=== PATIENT | male | born 1960 | race Caucasian/White ===

== ENCOUNTER 2018-01-10 23:47 | Emergency (ER) | payer OTHER ==
[2018-01-11] MEDS ORDERED: Hydrocortisone/Neomycin/Polymyxin B Ophth Susp 7.5 ML Bottle ONE (00:28)
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
== END 2018-01-11 00:57 | disposition home or self-care (01) ==
LOC: FB.ED 23:47
DX: S05.01XA Injury of conjunctiva and corneal abrasion without foreign body, right eye, initial encounter (principal); X08.8XXA Exposure to other specified smoke, fire and flames, initial encounter
CPT/HCPCS: 99283; A9270-GY

== ENCOUNTER 2018-08-17 05:59 | Emergency (ER) | payer MEDICARE, OTHER ==
[2018-08-17] MEDS ORDERED: Sodium Chloride 0.9% 10 ML Syringe FLUSH PRN (06:00)
[2018-08-17] MEDS ORDERED: Albuterol/Ipratropium 3.0-0.5 MG/3 ML Neb Soln NEB ONE (06:08)
[2018-08-17] MEDS ORDERED: methylPREDNISolone Sodium Succinate 125 MG/2 ML SDV IVPUSH ONE (06:11)
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
[2018-08-17] MEDS ORDERED: Aspirin 81 MG Tab.Chew PO ONE (07:08)
[2018-08-17] MEDS ORDERED: Heparin Sodium/0.45% NaCl 25,000 UNITS/500 ML BAG IV SCH (07:15)
[2018-08-17] MEDS ORDERED: Iopamidol 755 Mg/ML 100 ML Bottle IV ONE (07:56)
[2018-08-17] MEDS ORDERED: Levofloxacin 500 MG Tab PO ONE (09:08)
== END 2018-08-17 10:15 ==
LOC: FB.ED 05:59
DX: I21.4 Non-ST elevation (NSTEMI) myocardial infarction (principal); J18.1 Lobar pneumonia, unspecified organism; F41.9 Anxiety disorder, unspecified; F32.9 Major depressive disorder, single episode, unspecified; J44.9 Chronic obstructive pulmonary disease, unspecified; Z79.82 Long term (current) use of aspirin; Z79.899 Other long term (current) drug therapy; Z91.030 Bee allergy status
CPT/HCPCS: 36415; 71045; 71275; 80048; 83605; 84484; 85025; 85379; 85610; 85730; 87040; 93005; 94640; 96365; 96366; 96375; 99285; A9270-GY; J1644; J2930; J7620-GY; Q9967

== ENCOUNTER 2020-05-16 08:49 | Inpatient (IN) | payer OTHER, MEDICARE ==
[2020-05-16] MEDS ORDERED: Dexamethasone 4 MG/ML SDV IVPUSH ONE (09:06)
[2020-05-16] MEDS ORDERED: Sodium Chloride 0.9% 500 ML IV ONE (09:06)
[2020-05-16] MEDS ORDERED: Albuterol/Ipratropium 3.0-0.5 MG/3 ML Neb Soln NEB ONE (09:07)
--- NOTE | 2020-05-16 09:15 | EDM.PDOC ---
ED HPI GENERAL MEDICAL PROBLEM - General Chief Complaint: Respiratory Problem Stated Complaint: CHEST PAIN Time Seen by Provider: 05/16/20 09:09 Source of Information: Reports: Patient History Limitations: Reports: No Limitations - History of Present Illness INITIAL COMMENTS - FREE TEXT/NARRATIVE: Presents with cough, SOB, chills, pleuritic right sided chest pain, and RUQ abdominal pain x 2 days. Denies N/V/D. Patient has a prior history of CAD (CABG in 2017) and COPD. He continues to smoke cigarettes. Patient usually uses 02 only at night but has been using it during the day as well x 2 days. Duration: Day(s): (2) Location: Reports: Chest, Abdomen Quality: Reports: Ache Severity: Moderate R lateral rib Pain Score (Numeric/FACES): 9 - Related Data Allergies Allergy/AdvReac Type Severity Reaction Status Date / Time venom-honey bee Allergy Anaphylactic Verified 05/16/20 09:37 [bee venom (honey bee)] Shock Home Meds: Home Meds ALPRAZolam [Xanax] 0.5 mg PO DAILY 01/11/18 [History] Albuterol [Proventil HFA] 2 puff INH Q4H PRN 01/11/18 [History] Aspirin 81 mg PO DAILY 01/11/18 [History] Budesonide/Formoterol [Symbicort 160-4.5 MCG] 2 puff BID 01/11/18 [History] Simvastatin [Zocor] 40 mg PO BEDTIME 01/11/18 [History] busPIRone [Buspar] 20 mg PO BID 01/11/18 [History] traZODone 150 mg PO BEDTIME 01/11/18 [History] metFORMIN [Glucophage] 500 mg PO BIDMEALS 05/16/20 [History] Past Medical History Cardiovascular History: Reports: CAD, High Cholesterol, PVD Other Cardiovascular History: open heart surgery on 12/23/2016. has triple bypass Respiratory History: Reports: COPD Musculoskeletal History: Reports: Fracture, Other (See Below) Other Musculoskeletal History: hx L fx clavicle Psychiatric History: Reports: Addiction, Anxiety, Depression, Panic Attack Other Psychiatric History: hx cocaine abuse Endocrine/Metabolic History: Reports: Obesity/BMI 30+ - Past Surgical History HEENT Surgical History: Reports: Adenoidectomy, Tonsillectomy Cardiovascular Surgical History: Reports: Coronary Artery Bypass Other Cardiovascular Surgeries/Procedures: 3 vessel bypass Respiratory Surgical History: Reports: None Musculoskeletal Surgical History: Reports: None Social & Family History - Family History Family Medical History: Noncontributory - Tobacco Use Tobacco Use Status *Q: Current Every Day Tobacco User Tobacco Use Within Last Twelve Months: Cigarettes - Caffeine Use Caffeine Use: Reports: Coffee ED ROS GENERAL - Review of Systems Review Of Systems: Comprehensive ROS is negative, except as noted in HPI. ED EXAM, GENERAL - Physical Exam Exam: See Below Exam Limited By: No Limitations General Appearance: Alert, WD/WN, No Apparent Distress Nose: Normal Inspection Throat/Mouth: No Airway Compromise Head: Atraumatic, Normocephalic Neck: Full Range of Motion Respiratory/Chest: No Respiratory Distress, Decreased Breath Sounds, Crackles (right) Cardiovascular: Regular Rate, Rhythm, No Murmur GI/Abdominal: Normal Bowel Sounds, Soft, Tender (mild RUQ). No: Guarding Back Exam: Full Range of Motion Extremities: Normal Range of Motion, Non-Tender, No Pedal Edema Neurological: Alert, Normal Cognition, No Motor/Sensory Deficits Psychiatric: Normal Affect, Normal Mood Skin Exam: Warm, Dry, Intact #1 Interpretation EKG Date: 05/16/20 Time: 08:52 Rhythm: Other (sinus tachycardia) Rate (Beats/Min): 120 Trade: Normal P-Wave: Present QRS: RBBB ST-T: Normal QT: Normal Comparison: No Change (08/17/18) Course - Vital Signs Last Recorded V/S: Last Vital Signs Temp 36.8 C 05/16/20 08:49 Pulse 122 H 05/16/20 08:49 Resp 28 H 05/16/20 08:49 BP 137/82 05/16/20 08:49 Pulse Ox 91 L 05/16/20 08:49 - Orders/Labs/Meds Orders: Active Orders 24 hr Category Date Time Status Admission Status [Patient Status] [ADT] Routine ADT 05/16/20 13:03 Active EKG Documentation Completion [RC] ASDIRECTED Care 05/16/20 08:57 Active RT Aerosol Therapy [RC] ASDIRECTED Care 05/16/20 09:07 Active Ang Chest [CT] Stat Exams 05/16/20 10:11 Taken CXR [Chest 1V Frontal] [CR] Stat Exams 05/16/20 08:57 Taken CULTURE BLOOD [BC] Urgent Lab 05/16/20 09:20 Received CULTURE BLOOD [BC] Urgent Lab 05/16/20 09:25 Received CULTURE SPUTUM + SMEAR [RM] Stat Lab 05/16/20 09:08 Ordered Sodium Chloride 0.9% [Saline Flush] Med 05/16/20 09:06 Active 10 ml FLUSH ASDIRECTED PRN Blood Culture x2 Reflex Set [OM.PC] Urgent Oth 05/16/20 09:04 Ordered Isolation [COMM] Routine Oth 05/16/20 09:05 Ordered Saline Lock Insert [OM.PC] Routine Oth 05/16/20 09:06 Ordered EKG 12 Lead [EK] Stat Ther 05/16/20 08:57 Ordered Medication Orders Sodium Chloride (Saline Flush) 10 ml FLUSH ASDIRECTED PRN PRN Reason: Keep Vein Open Last Admin: 05/16/20 10:20 Dose: 10 ml Documented by: STEFANIE Labs: Laboratory Tests 05/16/20 05/16/20 05/16/20 Range/Units 08:55 08:55 08:55 WBC 11.4 (4.5-12.0) X10-3/uL RBC 4.75 (4.30-5.75) x10(6)uL Hgb 14.9 (13.5-17.8) g/dL Hct 44.6 (30.0-51.3) % MCV 93.9 (80-96) fL MCH 31.4 (27.7-33.6) pg MCHC 33.4 (32.2-35.4) g/dL RDW 15.1 (11.5-15.5) % Plt Count 196 (125-369) X10(3)uL MPV 7.7 (7.4-10.4) fL Add Manual Diff Yes Neutrophils % (Manual) 90 H (46-82) % Band Neutrophils % 3 (0-6) % Lymphocytes % (Manual) 6 L (13-37) % Monocytes % (Manual) 1 L (4-12) % PT 9.6 (9.0-11.1) sec INR 0.88 L (1.00-1.24) APTT 29.6 (24.4-33.2) SECONDS D-Dimer, Quantitative 4.59 H (0.0-0.59) mg/LFEU POC VBG pH (7.32-7.43) pH Units POC VBG pCO2 (41-51) mmHg POC VBG HCO3 (21-29) mmol/L VBG Base Excess (-2-3) mmol/L O2 Delivery Device Sodium 133 L (135-145) mmol/L Potassium 3.9 (3.5-5.3) mmol/L Chloride 96 L (100-110) mmol/L Carbon Dioxide 27 (21-32) mmol/L BUN 14 (7-18) mg/dL Creatinine 1.1 (0.70-1.30) mg/dL Est Cr Clr Drug Dosing TNP Estimated GFR (MDRD) > 60 (>60) BUN/Creatinine Ratio 12.7 (9-20) Glucose 209 H (80-116) mg/dL Lactic Acid (0.4-2.0) mmol/L Calcium 9.4 (8.6-10.2) mg/dL Total Bilirubin 1.2 (0.1-1.3) mg/dL AST 50 H (5-25) IU/L ALT 39 H (12-36) U/L Alkaline Phosphatase 130 H (56-112) IU/L Troponin I (4.0-60.3) pg/mL Total Protein 6.7 (6.0-8.0) g/dL Albumin 1.9 L (3.2-4.6) g/dL Globulin 4.8 g/dL Albumin/Globulin Ratio 0.4 Lipase (73-393) U/L SARS-CoV-2 RNA ([facility]) (NEGATIVE) 05/16/20 05/16/20 05/16/20 Range/Units 08:55 08:55 09:05 WBC (4.5-12.0) X10-3/uL RBC (4.30-5.75) x10(6)uL Hgb (13.5-17.8) g/dL Hct (30.0-51.3) % MCV (80-96) fL MCH (27.7-33.6) pg MCHC (32.2-35.4) g/dL RDW (11.5-15.5) % Plt Count (125-369) X10(3)uL MPV (7.4-10.4) fL Add Manual Diff Neutrophils % (Manual) (46-82) % Band Neutrophils % (0-6) % Lymphocytes % (Manual) (13-37) % Monocytes % (Manual) (4-12) % PT (9.0-11.1) sec INR (1.00-1.24) APTT (24.4-33.2) SECONDS D-Dimer, Quantitative (0.0-0.59) mg/LFEU POC VBG pH (7.32-7.43) pH Units POC VBG pCO2 (41-51) mmHg POC VBG HCO3 (21-29) mmol/L VBG Base Excess (-2-3) mmol/L O2 Delivery Device Sodium (135-145) mmol/L Potassium (3.5-5.3) mmol/L Chloride (100-110) mmol/L Carbon Dioxide (21-32) mmol/L BUN (7-18) mg/dL Creatinine (0.70-1.30) mg/dL Est Cr Clr Drug Dosing Estimated GFR (MDRD) (>60) BUN/Creatinine Ratio (9-20) Glucose (80-116) mg/dL Lactic Acid (0.4-2.0) mmol/L Calcium (8.6-10.2) mg/dL Total Bilirubin (0.1-1.3) mg/dL AST (5-25) IU/L ALT (12-36) U/L Alkaline Phosphatase (56-112) IU/L Troponin I 279.0 H* (4.0-60.3) pg/mL Total Protein (6.0-8.0) g/dL Albumin (3.2-4.6) g/dL Globulin g/dL Albumin/Globulin Ratio Lipase 90 (73-393) U/L SARS-CoV-2 RNA ([facility]) Negative (NEGATIVE) 05/16/20 05/16/20 05/16/20 Range/Units 09:25 09:25 12:12 WBC (4.5-12.0) X10-3/uL RBC (4.30-5.75) x10(6)uL Hgb (13.5-17.8) g/dL Hct (30.0-51.3) % MCV (80-96) fL MCH (27.7-33.6) pg MCHC (32.2-35.4) g/dL RDW (11.5-15.5) % Plt Count (125-369) X10(3)uL MPV (7.4-10.4) fL Add Manual Diff Neutrophils % (Manual) (46-82) % Band Neutrophils % (0-6) % Lymphocytes % (Manual) (13-37) % Monocytes % (Manual) (4-12) % PT (9.0-11.1) sec INR (1.00-1.24) APTT (24.4-33.2) SECONDS D-Dimer, Quantitative (0.0-0.59) mg/LFEU POC VBG pH 7.47 H (7.32-7.43) pH Units POC VBG pCO2 33 L (41-51) mmHg POC VBG HCO3 24 (21-29) mmol/L VBG Base Excess 0 (-2-3) mmol/L O2 Delivery Device Room air Sodium (135-145) mmol/L Potassium (3.5-5.3) mmol/L Chloride (100-110) mmol/L Carbon Dioxide (21-32) mmol/L BUN (7-18) mg/dL Creatinine (0.70-1.30) mg/dL Est Cr Clr Drug Dosing Estimated GFR (MDRD) (>60) BUN/Creatinine Ratio (9-20) Glucose (80-116) mg/dL Lactic Acid 1.7 (0.4-2.0) mmol/L Calcium (8.6-10.2) mg/dL Total Bilirubin (0.1-1.3) mg/dL AST (5-25) IU/L ALT (12-36) U/L Alkaline Phosphatase (56-112) IU/L Troponin I 266.2 H* (4.0-60.3) pg/mL Total Protein (6.0-8.0) g/dL Albumin (3.2-4.6) g/dL Globulin g/dL Albumin/Globulin Ratio Lipase (73-393) U/L SARS-CoV-2 RNA ([facility]INA) (NEGATIVE) Meds: Medications Generic Name Dose Route Start Last Admin Trade Name Freq PRN Reason Stop Dose Admin Sodium Chloride 10 ml 05/16/20 09:06 05/16/20 10:20 Saline Flush FLUSH 10 ml ASDIRECTED PRN Administration Keep Vein Open Discontinued Medications Generic Name Dose Route Start Last Admin Trade Name Noe PRN Reason Stop Dose Admin Albuterol/Ipratropium 3 ml 05/16/20 09:07 05/16/20 09:42 Duoneb 3.0-0.5 Mg/3 Ml NEB 05/16/20 09:08 3 ml ONETIME ONE Administration Aspirin 243 mg 05/16/20 09:33 05/16/20 09:40 Aspirin PO 05/16/20 09:34 243 mg ONETIME ONE Administration Azithromycin 500 mg 05/16/20 11:53 05/16/20 12:06 Zithromax PO 05/16/20 11:54 500 mg ONETIME ONE Administration Ceftriaxone Sodium 2 gm 05/16/20 11:52 05/16/20 12:06 Rocephin IVPUSH 05/16/20 11:53 2 gm ONETIME ONE Administration Dexamethasone 10 mg 05/16/20 09:06 05/16/20 10:24 Dexamethasone IVPUSH 05/16/20 09:07 10 mg ONETIME ONE Administration Sodium Chloride 500 mls @ 500 mls/hr 05/16/20 09:06 05/16/20 10:20 Normal Saline IV 05/16/20 10:05 500 mls/hr .BOLUS ONE Administration Iopamidol 100 ml 05/16/20 11:01 05/16/20 11:25 Isovue-370 (76%) IV 05/16/20 11:02 90 ml . DIRECTED ONE Administration - Radiology Interpretation Free Text/Narrative:: CXR: FINDINGS/IMPRESSION: The cardiac silhouette is within normal limits. There is airspace opacification as well as interstitial thickening in the right lung base and right perihilar region concerning for potential infiltrate. There is suggestion of superimposed chronic fibrointerstitial changes. There is mild right pleural thickening versus small effusion. No pneumothorax. Left lung is clear. Finalized by: Parag Patricia MD on 05/16/2020 10:51 AM CDT. CTA Chest: No pulmonary emboli. RLL opacification adjacent patchy infiltrates. Patchy infiltrates also located in LLL and RUL. (per Dr. Trinidad) - Re-Assessments/Exams Free Text/Narrative Re-Assessment/Exam: 05/16/20 12:40 Patient feels much better. Sa02 91% on 4L 02 NC. Troponin trending down. No EKG changes. 05/16/20 13:06 Dr. Walter agrees to admit to [facility] Departure - Departure Time of Disposition: 13:07 Disposition: Admitted As Inpatient 64 Condition: Fair Clinical Impression: COPD exacerbation, Hypoxemia Pneumonia Qualifiers: Pneumonia type: due to unspecified organism Laterality: bilateral Lung location: unspecified part of lung Qualified Code(s): J18.9 - Pneumonia, unspecified organism Referrals: PCP,Not In Area [Primary Care Provider] - Forms: ED Department Discharge Sepsis Event Note (ED) - Focused Exam Vital Signs: Vital Signs Temp Pulse Resp BP Pulse Ox 05/16/20 08:49 36.8 C 122 H 28 H 137/82 91 L - My Orders Last 24 Hours: My Active Orders 05/16/20 08:57 EKG Documentation Completion [RC] ASDIRECTED CXR [Chest 1V Frontal] [CR] Stat EKG 12 Lead [EK] Stat 05/16/20 09:04 Blood Culture x2 Reflex Set [OM.PC] Urgent 05/16/20 09:05 Isolation [COMM] Routine 05/16/20 09:06 Sodium Chloride 0.9% [Saline Flush] 10 ml FLUSH ASDIRECTED PRN Saline Lock Insert [OM.PC] Routine 05/16/20 09:07 RT Aerosol Therapy [RC] ASDIRECTED 05/16/20 09:08 CULTURE SPUTUM + SMEAR [RM] Stat 05/16/20 09:20 CULTURE BLOOD [BC] Urgent 05/16/20 09:25 CULTURE BLOOD [BC] Urgent 05/16/20 10:11 Ang Chest [CT] Stat 05/16/20 13:03 Admission Status [Patient Status] [ADT] Routine - Assessment/Plan Last 24 Hours: My Active Orders 05/16/20 08:57 EKG Documentation Completion [RC] ASDIRECTED CXR [Chest 1V Frontal] [CR] Stat EKG 12 Lead [EK] Stat 05/16/20 09:04 Blood Culture x2 Reflex Set [OM.PC] Urgent 05/16/20 09:05 Isolation [COMM] Routine 05/16/20 09:06 Sodium Chloride 0.9% [Saline Flush] 10 ml FLUSH ASDIRECTED PRN Saline Lock Insert [OM.PC] Routine 05/16/20 09:07 RT Aerosol Therapy [RC] ASDIRECTED 05/16/20 09:08 CULTURE SPUTUM + SMEAR [RM] Stat 05/16/20 09:20 CULTURE BLOOD [BC] Urgent 05/16/20 09:25 CULTURE BLOOD [BC] Urgent 05/16/20 10:11 Ang Chest [CT] Stat 05/16/20 13:03 Admission Status [Patient Status] [ADT] Routine
[2020-05-16] MEDS ORDERED: Aspirin 81 MG Tab.Chew PO ONE (09:33)
[2020-05-16 09:46] LABS: BASE EXCESS VENOUS,POC 0 mmol/L (-2-3); HCO3 VENOUS,POC 24 mmol/L (21-29); PCO2 VENOUS,POC 33 mmHg (41-51); PH VENOUS,POC 7.47 pH Units (7.32-7.43)
[2020-05-16] MEDS: Sodium Chloride 0.9% 10 ML Syringe FLUSH PRN (10:20)
[2020-05-16] MEDS ORDERED: Iopamidol 755 Mg/ML 100 ML Bottle IV ONE (11:01)
[2020-05-16] MEDS ORDERED: cefTRIAXone 2 GM Vial IVPUSH ONE (11:52)
[2020-05-16] MEDS ORDERED: Azithromycin 500 MG Tab PO ONE (11:53)
[2020-05-16] MEDS ORDERED: Albuterol 8 GM Inhaler INH PRN (14:51)
[2020-05-16] MEDS ORDERED: Enoxaparin 40 MG/0.4 ML Syringe SUBCUT SCH (16:00)
[2020-05-16] MEDS ORDERED: ALPRAZolam 0.5 MG Tab PO PRN (16:00)
--- NOTE | 2020-05-16 16:24 | HP ---
ADMISSION DATE: 05/16/2020 History is from the patient and his clinic chart. CHIEF COMPLAINT: Pneumonia. HISTORY OF PRESENT ILLNESS: Mr. Morales is a 59-year-old with a history of coronary artery disease, IA, and angioplasty with stents. He has also had severe peripheral vascular disease and has been scheduled in the past for a right femoral-popliteal bypass; however, it was canceled 1 year ago because of pneumonia. He was scheduled to see his vascular surgeon on May 22 too, an appointment that may be canceled because of this illness. According to the patient, approximately 2 days ago, he began to have pain in his right chest. He says it felt like a horse kicked him there. He also developed fever, chills, and a cough. This worsened over the subsequent day, and he came into the emergency room this afternoon where he was evaluated by Dr. Lucas and is now admitted for pneumonia. The patient denies injuries to his chest. He does report shortness of breath, and he is on chronic oxygen because of severe COPD. CT angiogram was done in the emergency room that showed no sign of a pulmonary embolus. Of note that he has been treated twice in the last 2 years with antibiotics for pneumonia. PAST MEDICAL HISTORY: Coronary artery disease. He was admitted to [facility] in [place] in June 2018 when he had an admission for chest pain. He left AMA, however, before additional workup could be done. Past history recorded an apparent cardiac bypass graft in 2018 at the [facility] in [place]. Past history also includes fissurectomy, depression, and severe COPD. He denies other surgical procedures, inpatient hospitalizations, or medical problems. MEDICATIONS: 1. Trazodone 150 mg at bedtime. 2. Simvastatin 40 mg daily. 3. Metformin 500 mg b.i.d. 4. BuSpar 20 mg b.i.d. 5. Symbicort 160 two puffs b.i.d. 6. Aspirin 81 mg daily. 7. Proventil HFA 2 puffs every 4 hours p.r.n. 8. Alprazolam 0.5 mg p.o. daily. ALLERGIES: None to medications. HABITS: Ten cigarettes per day smoker. Occasional alcohol. One pot of coffee per day. FAMILY AND SOCIAL HISTORY: The patient is engaged and lives with his significant other in [place]. 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 He is now disabled from work. He has 1 son who lives in [place]. Family Medical History: The patient's father at age 62 of an IA. His father had his 1st IA at age 56. Paternal grandfather of an IA at age 39. Mother is aged 88 and has peripheral vascular disease. He has 4 siblings who are described in good health. REVIEW OF SYSTEMS: GENERAL: No seizure, syncope, or recent significant weight change. SKIN: Negative for rash. HEENT: No recent change in hearing or vision. No sore throat or URI. CHEST: He does have a cough and some right- sided chest pain as mentioned that is inspiratory in nature. CARDIAC: No palpitations. ABDOMEN: No abdominal pain, nausea, or diarrhea. MUSCULOSKELETAL: No swelling or skin rash. PHYSICAL EXAMINATION: GENERAL: He is alert and comfortable. He is a good historian. VITAL SIGNS: Blood pressure 137/82, pulse 122 and regular, respirations 28, and O2 saturation 91% on 4 L nasal cannula. Weight stated at 227 pounds. SKIN: Anicteric, warm, and dry. No rash or sign of trauma. HEENT: Clear TMs. Throat is clear. LUNGS: Clear in the upper lung crowell. He has fine rales at the left base and coarse rales with diminished breath sounds at the right base. HEART: Regular without murmur or gallop. ABDOMEN: Obese, soft, and nontender. No masses or organomegaly. EXTREMITIES: No edema. He has palpable dorsalis pedis pulse in the left foot. I cannot feel any pulses in the right foot. NEUROLOGIC: Mental status intact. Motor exam is symmetric. LABORATORY DATA: Chest x-ray shows right lower lobe pneumonia. White count 11,400, hemoglobin 14.9, platelets 196, segs 90, bands 3, lymphs 6, and 1 mono. Sodium 133, potassium 3.9, BUN 14, and creatinine 1.1. Troponin 279 and on recheck 266. SARS test negative. ASSESSMENT: A 59-year-old man with: 1. Right lower lobe pneumonia. 2. Severe oxygen-dependent chronic obstructive pulmonary disease. 3. History of coronary artery disease, status post coronary artery bypass graft. 4. Cigarette smoker. 5. Severe peripheral vascular disease with plans for upcoming right femoral- popliteal bypass and later left femoral-popliteal bypass. 6. Depression. PLAN: He is started on IV ceftriaxone and azithromycin. We will use incentive spirometry and anticipate a 48 to 72-hour acute hospital stay followed by return to home. /[id number] LIZETTE/CHASE
[2020-05-16] MEDS ORDERED: metFORMIN 500 MG Tab PO SCH (18:00)
[2020-05-16] MEDS: busPIRone 10 MG Tab PO SCH (20:00)
[2020-05-16] MEDS: Formoterol/Mometasone 200-5 MCG 8.8 GM Inhaler IH SCH (20:01)
[2020-05-16] MEDS ORDERED: Nicotine 14 MG/24 Hr Patch TRDERM SCH (20:45)
[2020-05-16] MEDS ORDERED: traZODone 50 MG Tab PO SCH (21:00)
[2020-05-16] MEDS ORDERED: Simvastatin 40 MG Tab PO SCH (21:00)
[2020-05-17] MEDS ORDERED: metFORMIN 500 MG Tab PO SCH (08:00)
--- NOTE | 2020-05-17 08:18 | CT ---
INDICATION: Short of breath, elevated D-dimer (4.59), no chest pain - shortness of breath x2 days. COMPUTERIZED TOMOGRAPHY ANGIOGRAPHY OF THE CHEST WITH CONTRAST: Spiral 1.25 mm axial sections were obtained through the chest with axial, sagittal and coronal reconstructions 06/16/20 with 90 mL Isovue-370 at 3 mL per second and compared with 08/17/18 examination. Total exam DLP was 923.90 mGy-cm. Mediastinal lymphadenopathy is moderate and may be reactive to infection, although it is nonspecific in that regard and could be neoplastic in etiology. Subcarinal nodes appear to be more prominent than on the previous study. The remainder of the nodes appear fairly stable. Right hilar lymphadenopathy is also again noted overall appearing similar to the previous study. No mediastinal mass was identified. Calcifications are noted in the arch of the aorta and apparently coronary arteries. The heart did not appear enlarged. No pericardial effusion was seen. The upper abdomen included on the study suggests relatively low density liver suggesting fatty liver. A calculus is noted in the gallbladder compatible with cholelithiasis. Mild renal fascial thickening is also noted on the left. The left lung appears overall similar to the previous study with some hydrostatic density posteriorly, it is difficult to exclude some minimal linear atelectasis in the lingula area, especially on the left. On the right, however, there is extensive consolidating pneumonia involving the right lower lobe which is compatible with pneumonia. There appears to be a pleural effusion of moderate size on the right compatible with pleuritis. The infiltrate extends throughout the right lower lobe with less prominent but significant infiltrate noted in the middle lobe on the right. Relatively minimal infiltrate is suggested in the basilar right upper lobe. No evidence of pulmonary embolus was identified. IMPRESSION: 1. Almost complete opacification of the right lower lobe with additional minimal infiltrate in the right upper lobe and moderate infiltrate in the middle lobe. This appearance would be compatible with a severe pneumonia with pleuritis as there appears to be a moderate amount of pleural fluid, possibly loculated. 2. Some very minimal peripheral infiltrates are noted in the left lower lobe at the lung base and apical superior segment posteriorly for the most part. A process such as COVID-19 would be a consideration - correlate clinically. 3. No evidence of PE could be identified. 4. ASHD/ASD. Report was called to Dr. Lucas at 1147 hours. MTDD
[2020-05-17] MEDS ORDERED: Azithromycin 250 MG Tab PO SCH (09:00)
[2020-05-17] MEDS ORDERED: Aspirin 81 MG Tab.Chew PO SCH (09:00)
[2020-05-17] MEDS ORDERED: cefTRIAXone 1 GM in Sodium Chloride 0.9% 50 ML IV SCH (10:00)
[2020-05-17] MEDS: busPIRone 10 MG Tab PO SCH (10:18)
[2020-05-17] MEDS: Formoterol/Mometasone 200-5 MCG 8.8 GM Inhaler IH SCH (10:18)
[2020-05-17] MEDS ORDERED: cefTRIAXone 1 GM Vial IVPUSH SCH ×2 (10:25→12:00)
[2020-05-17] MEDS: Sodium Chloride 0.9% 10 ML Syringe FLUSH PRN (10:29)
--- NOTE | 2020-05-17 16:17 | DISCH ---
DISCHARGE DATE: 05/17/2020 HISTORY: Antonio is a 59-year-old who has received almost all of his care at the [facility] with a history of severe COPD, oxygen dependent; coronary artery disease, status post CABG; and type 2 diabetes. He was admitted through the emergency room because of coughing and shortness of breath. He is on chronic home oxygen. He was found to have an infiltrate in the right lung and was admitted for IV treatment of pneumonia. The patient states that he felt well overnight. He slept well. The pain he was having in the right side of his chest is now gone. He is not having any breathing difficulty and he is anxious to go home, stating that he is going to go home today. PHYSICAL EXAMINATION: VITAL SIGNS: This morning showed his weight to be 219 pounds. Temperature 97.6, O2 saturation 90% on 4 L nasal cannula. LUNGS: Had extensive dense rales and rhonchi throughout the upper, mid, and lower right lung field. Left was clear. HEART: Regular. ABDOMEN: Soft and nontender. EXTREMITIES: Showed no edema. LABORATORY DATA: This morning, white count 12,100, glucose 292. Troponin 228, this has remained elevated modestly since yesterday without a clear peak. EKG reviewed showed a right bundle branch block and no acute ischemic changes. DISCHARGE INSTRUCTIONS: I have recommended that he stay for continued inpatient treatment. He was adamant about going home. I have consented to release him to continue IV Rocephin therapy tomorrow or the next day to be received at the clinic. We will leave the saline lock in place. He will continue his azithromycin as well. He is to have a followup for a lung exam in 1 week and recheck sooner p.r.n. /[id number] LIZETTE/CHASE
[2020-05-17] MEDS ORDERED: Nicotine 14 MG/24 Hr Patch TRDERM SCH (21:00)
== END 2020-05-17 10:45 | disposition home or self-care (01) | DRG 194 ==
LOC: FB.ED 08:49 → FB.MS 13:03
PROVIDERS: ADMIT Emergency Medicine; ATTEND Family Medicine
DX: J18.9 Pneumonia, unspecified organism (principal); J44.0 Chronic obstructive pulmonary disease with (acute) lower respiratory infection; J44.1 Chronic obstructive pulmonary disease with (acute) exacerbation; R09.02 Hypoxemia; I25.10 Atherosclerotic heart disease of native coronary artery without angina pectoris; F32.9 Major depressive disorder, single episode, unspecified; F17.210 Nicotine dependence, cigarettes, uncomplicated; I73.9 Peripheral vascular disease, unspecified; Z20.828 Contact with and (suspected) exposure to other viral communicable diseases; E78.00 Pure hypercholesterolemia, unspecified; F41.9 Anxiety disorder, unspecified; F41.0 Panic disorder [episodic paroxysmal anxiety]; F14.11 Cocaine abuse, in remission; E66.9 Obesity, unspecified; I10 Essential (primary) hypertension; E11.51 Type 2 diabetes mellitus with diabetic peripheral angiopathy without gangrene; I25.2 Old myocardial infarction; Z95.5 Presence of coronary angioplasty implant and graft; Z99.81 Dependence on supplemental oxygen; Z91.030 Bee allergy status; Z95.1 Presence of aortocoronary bypass graft; Z79.82 Long term (current) use of aspirin; Z79.899 Other long term (current) drug therapy; Z79.84 Long term (current) use of oral hypoglycemic drugs; Z68.34 Body mass index [BMI] 34.0-34.9, adult
CPT/HCPCS: 36415; 71045; 71275; 80053; 82947; 83605; 83690; 84484; 85025; 85379; 85610; 85730; 87040; 87077; 87804; 87804-59; 93005; 94150; 96374; 96375; 99285-25; A9270-GY; J0696; J1100; J1650; J7040; J7620-GY; Q9967; U0002

== ENCOUNTER 2020-09-02 19:11 | Emergency (ER) | payer OTHER, MEDICARE ==
[2020-09-02] MEDS ORDERED: Acetaminophen/HYDROcodone 325-5 MG Tab PO ONE (19:12)
--- NOTE | 2020-09-02 19:51 | EDM.PDOC ---
ED HPI GENERAL MEDICAL PROBLEM - General Chief Complaint: Wound Recheck Stated Complaint: post op complications Time Seen by Provider: 09/02/20 19:42 Source of Information: Reports: Patient History Limitations: Reports: No Limitations - History of Present Illness INITIAL COMMENTS - FREE TEXT/NARRATIVE: Patient had a right femoral artery procedure (endarterectomy with patch) on 08/15/19 at [facility] by Dr. Peng. His wound vac fell off yesterday and today noticed the wound had dehisced and began having purulent drainage from the site this evening. Patient complains of pain to the area. Denies fevers. Patient continues to smoke cigarettes. Onset: Today Quality: Reports: Dull Severity: Moderate R inguinal region Pain Score (Numeric/FACES): 8 - Related Data Allergies Allergy/AdvReac Type Severity Reaction Status Date / Time venom-honey bee Allergy Anaphylactic Verified 09/02/20 19:34 [bee venom (honey bee)] Shock Home Meds: Home Meds ALPRAZolam [Xanax] 0.5 mg PO DAILY PRN 01/11/18 [History] Albuterol [Proventil HFA] 2 puff INH Q4H PRN 01/11/18 [History] Aspirin 81 mg PO DAILY 01/11/18 [History] Budesonide/Formoterol [Symbicort 160-4.5 MCG] 2 puff BID 01/11/18 [History] Simvastatin [Zocor] 40 mg PO BEDTIME 01/11/18 [History] busPIRone [Buspar] 20 mg PO BID 01/11/18 [History] traZODone 150 mg PO BEDTIME 01/11/18 [History] metFORMIN [Glucophage] 1,000 mg PO BIDMEALS tablet 05/17/20 [Rx] Albuterol/Ipratropium [DuoNeb 3.0-0.5 MG/3 ML] 3 ml QID PRN 09/02/20 [History] Isosorbide Mononitrate [Imdur] 30 mg PO DAILY 09/02/20 [History] Metoprolol Succinate [Toprol XL] 25 mg PO DAILY 09/02/20 [History] Past Medical History Cardiovascular History: Reports: CAD, High Cholesterol, PVD Other Cardiovascular History: open heart surgery on 12/23/2016. has triple bypass Respiratory History: Reports: COPD Other Respiratory History: O2 @ home @ hs Gastrointestinal History: Reports: GERD Musculoskeletal History: Reports: Fracture, Other (See Below) Other Musculoskeletal History: hx L fx clavicle Psychiatric History: Reports: Addiction, Anxiety, Depression, Panic Attack Other Psychiatric History: hx cocaine abuse Endocrine/Metabolic History: Reports: Obesity/BMI 30+ - Infectious Disease History Infectious Disease History: Reports: Measles - Past Surgical History HEENT Surgical History: Reports: Adenoidectomy, Tonsillectomy Cardiovascular Surgical History: Reports: Coronary Artery Bypass Other Cardiovascular Surgeries/Procedures: 3 vessel bypass Respiratory Surgical History: Reports: None GI Surgical History: Reports: Colonoscopy Musculoskeletal Surgical History: Reports: None Social & Family History - Family History Family Medical History: No Pertinent Family History - Tobacco Use Tobacco Use Status *Q: Current Every Day Tobacco User Tobacco Use Within Last Twelve Months: Cigarettes - Caffeine Use Caffeine Use: Reports: Coffee, Soda ED ROS GENERAL - Review of Systems Review Of Systems: Comprehensive ROS is negative, except as noted in HPI. ED EXAM, GENERAL - Physical Exam Exam: See Below Exam Limited By: No Limitations General Appearance: Alert, WD/WN, No Apparent Distress Nose: Normal Inspection Throat/Mouth: No Airway Compromise Head: Atraumatic, Normocephalic Neck: Full Range of Motion Respiratory/Chest: No Respiratory Distress Peripheral Pulses: 2+: Dorsalis Pedis (R) Extremities: Normal Capillary Refill Neurological: Alert, Normal Cognition Psychiatric: Normal Affect, Normal Mood Skin Exam: Other (4 cm right groin wound dehiscence, with purulent discharge and surrounding erythema and induration. Wound is @1.5 cm deep.) Course - Vital Signs Last Recorded V/S: Last Vital Signs Temp 36.4 C 09/02/20 19:13 Pulse 104 H 09/02/20 19:13 Resp 24 H 09/02/20 19:13 BP 131/94 H 09/02/20 19:13 Pulse Ox 98 09/02/20 19:13 - Orders/Labs/Meds Orders: Active Orders 24 hr Category Date Time Status CULTURE ANAEROBIC [RM] Stat Lab 09/02/20 19:38 Ordered CULTURE BLOOD [BC] Urgent Lab 09/02/20 19:40 Ordered CULTURE BLOOD [BC] Urgent Lab 09/02/20 19:40 Ordered CULTURE ROUTINE + SMEAR [RM] Stat Lab 09/02/20 19:38 Ordered Sodium Chloride 0.9% [Saline Flush] Med 09/02/20 19:39 Active 10 ml FLUSH ASDIRECTED PRN Blood Culture x2 Reflex Set [OM.PC] Urgent Oth 09/02/20 19:40 Ordered Saline Lock Insert [OM.PC] Routine Oth 09/02/20 19:39 Ordered Medication Orders Sodium Chloride (Saline Flush) 10 ml FLUSH ASDIRECTED PRN PRN Reason: Keep Vein Open Last Admin: 09/02/20 20:50 Dose: 10 ml Documented by: STEFANIE Labs: Laboratory Tests 09/02/20 09/02/20 09/02/20 Range/Units 19:50 19:50 19:50 WBC 11.2 H (3.2-10.1) x10-3/uL RBC 5.21 (3.90-5.90) x10(6)uL Hgb 15.7 (12.9-17.7) g/dL Hct 48.7 (38.3-50.1) % MCV 93.4 (80.8-98.7) fL MCH 30.2 (27.0-33.3) pg MCHC 32.3 (28.7-35.3) g/dL RDW 15.0 (12.4-15.0) % Plt Count 298 (117-477) x10(3)uL MPV 7.9 (6.7-11.0) fL Neut % (Auto) 56.4 (40.3-71.8) % Lymph % (Auto) 34.6 (15.8-45.3) % [place] % (Auto) 5.1 L (5.5-15.2) % Eos % (Auto) 3.0 (0.1-6.8) % Baso % (Auto) 0.9 (0.3-3.8) % Neut # (Auto) 6.3 (1.7-6.9) x10-3/uL Lymph # (Auto) 3.9 (0.5-4.5) x10-3/uL [place] # (Auto) 0.6 (0.0-1.2) x10-3/uL Eos # (Auto) 0.3 (0.0-0.6) x10-3/uL Baso # (Auto) 0.1 (0.0-0.3) x10-3/uL Sodium 139 (135-145) mmol/L Potassium 4.3 (3.5-5.3) mmol/L Chloride 100 (100-110) mmol/L Carbon Dioxide 28 (21-32) mmol/L BUN 14 (7-18) mg/dL Creatinine 1.1 (0.70-1.30) mg/dL Est Cr Clr Drug Dosing 62.83 mL/min Estimated GFR (MDRD) > 60 (>60) BUN/Creatinine Ratio 12.7 (9-20) Glucose 164 H (80-116) mg/dL Lactic Acid 2.0 (0.4-2.0) mmol/L Calcium 9.4 (8.6-10.2) mg/dL Meds: Medications Generic Name Dose Route Start Last Admin Trade Name Freq PRN Reason Stop Dose Admin Sodium Chloride 10 ml 09/02/20 19:39 09/02/20 20:50 Saline Flush FLUSH 10 ml ASDIRECTED PRN Administration Keep Vein Open Discontinued Medications Generic Name Dose Route Start Last Admin Trade Name Freq PRN Reason Stop Dose Admin Vancomycin HCl 1.5 gm/ Premix 300 mls @ 300 mls/hr 09/02/20 19:54 09/02/20 20:57 IV 09/02/20 19:55 300 mls/hr ONETIME ONE Administration - Re-Assessments/Exams Free Text/Narrative Re-Assessment/Exam: 09/02/20 21:[address] Patient care discussed with Dr. Peng, he recommends transfer to [facility] ED for application of wound vac. Patient refused transfer, stating he will have his girlfriend drive him in there in the morning. Dr. Aleman ([facility] surgical nurse) advised packing the wound with wet dressing and have the patient to come to the ER tomorrow morning at 0830. Patient is agreeable with this plan. Departure - Departure Time of Disposition: 21:31 Disposition: Against Medical Advice 07 Clinical Impression: Postoperative wound dehiscence Qualifiers: Encounter type: initial encounter Qualified Code(s): T81.31XA - Disruption of external operation (surgical) wound, not elsewhere classified, initial encounter Post-operative infection Qualifiers: Encounter type: initial encounter Postoperative infection type: superficial incisional surgical site Qualified Code(s): T81.41XA - Infection following a procedure, superficial incisional surgical site, initial encounter - Discharge Information *PRESCRIPTION DRUG MONITORING PROGRAM REVIEWED*: Yes *COPY OF PRESCRIPTION DRUG MONITORING REPORT IN PATIENT BE: No Instructions: Wound Infection, [id number], Wound Dehiscence, [id number] Forms: ED Department Discharge Additional Instructions: Go to the [facility] Emergency Department at 8:[address] Peng will see you then. Take the [place] as directed. Sepsis Event Note (ED) - Focused Exam Vital Signs: Vital Signs Temp Pulse Resp BP Pulse Ox 09/02/20 19:13 36.4 C 104 H 24 H 131/94 H 98 - My Orders Last 24 Hours: My Active Orders 09/02/20 19:38 CULTURE ANAEROBIC [RM] Stat CULTURE ROUTINE + SMEAR [RM] Stat 09/02/20 19:39 Sodium Chloride 0.9% [Saline Flush] 10 ml FLUSH ASDIRECTED PRN Saline Lock Insert [OM.PC] Routine 09/02/20 19:40 CULTURE BLOOD [BC] Urgent CULTURE BLOOD [BC] Urgent Blood Culture x2 Reflex Set [OM.PC] Urgent - Assessment/Plan Last 24 Hours: My Active Orders 09/02/20 19:38 CULTURE ANAEROBIC [RM] Stat CULTURE ROUTINE + SMEAR [RM] Stat 09/02/20 19:39 Sodium Chloride 0.9% [Saline Flush] 10 ml FLUSH ASDIRECTED PRN Saline Lock Insert [OM.PC] Routine 09/02/20 19:40 CULTURE BLOOD [BC] Urgent CULTURE BLOOD [BC] Urgent Blood Culture x2 Reflex Set [OM.PC] Urgent
[2020-09-02] MEDS: Sodium Chloride 0.9% 10 ML Syringe FLUSH PRN ×2 (20:50→22:33)
== END 2020-09-02 22:35 | disposition left against medical advice (07) ==
LOC: FB.ED 19:11
DX: T81.31XA Disruption of external operation (surgical) wound, not elsewhere classified, initial encounter (principal); T81.41XA Infection following a procedure, superficial incisional surgical site, initial encounter; I25.10 Atherosclerotic heart disease of native coronary artery without angina pectoris; E78.00 Pure hypercholesterolemia, unspecified; J44.9 Chronic obstructive pulmonary disease, unspecified; E66.9 Obesity, unspecified; Z72.0 Tobacco use; Z79.899 Other long term (current) drug therapy; Z68.37 Body mass index [BMI] 37.0-37.9, adult; Z91.030 Bee allergy status; Z99.81 Dependence on supplemental oxygen; Z79.82 Long term (current) use of aspirin; Z79.84 Long term (current) use of oral hypoglycemic drugs
CPT/HCPCS: 36415; 80048; 83605; 85025; 87040; 87070; 87075; 87205; 96365; 99283-25; 99284; A9270-GY; J3370

== ENCOUNTER 2023-01-29 10:23 | Emergency (ER) | payer OTHER, MEDICARE | END 2023-01-29 13:25 | disposition home or self-care (01) | LOC: FB.ED 10:23 | DX: S22.42XA Multiple fractures of ribs, left side, initial encounter for closed fracture (principal); J44.9 Chronic obstructive pulmonary disease, unspecified; E78.00 Pure hypercholesterolemia, unspecified; I25.10 Atherosclerotic heart disease of native coronary artery without angina pectoris; E66.9 Obesity, unspecified; E11.9 Type 2 diabetes mellitus without complications; K21.9 Gastro-esophageal reflux disease without esophagitis; F17.210 Nicotine dependence, cigarettes, uncomplicated; Z79.82 Long term (current) use of aspirin; Z95.1 Presence of aortocoronary bypass graft; Z79.51 Long term (current) use of inhaled steroids; Z79.899 Other long term (current) drug therapy; Z91.030 Bee allergy status; Z99.81 Dependence on supplemental oxygen; W19.XXXA Unspecified fall, initial encounter | CPT/HCPCS: 71101-LT; 99283 ==